=== PATIENT | male | born 1960 | race Caucasian/White ===

== ENCOUNTER → 2019-01-15 | Day surgery (SDC) | payer OTHER ==
[~2019-01-15] MED LIST: BUPIVACAINE MPF W/EPI 0.25% 30 ML VIAL ONE; FENTANYL PF 100MCG/2ML AMPUL ONE; FENTANYL PF 250MCG/5ML AMPUL ONE; HYDROCODONE/APAP 5/325MG 1 EACH TABLET ONE; MIDAZOLAM HCL 2 MG/2ML VIAL ONE; MORPHINE SULFATE/PF 10 MG/10ML (1MG/ML) AMPUL ONE
== END | disposition home or self-care (01) ==
LOC: DS 07:43
PROVIDERS: ATTEND Orthopaedic Surgery
DX: S83.242A Other tear of medial meniscus, current injury, left knee, initial encounter (principal); M94.262 Chondromalacia, left knee; I10 Essential (primary) hypertension; Z79.899 Other long term (current) drug therapy; X58.XXXA Exposure to other specified factors, initial encounter; Y93.89 Activity, other specified; Y92.89 Other specified places as the place of occurrence of the external cause; Y99.8 Other external cause status
CPT/HCPCS: 29881; 88304; 88311; J0690; J2250; J2274; J2405; J2704; J3010 ×2; J3490; A4217; A6253